=== PATIENT | female | born 1970 | race Caucasian/White ===

== ENCOUNTER → 2022-01-18 | Outpatient (CLI) | payer BC ==
--- NOTE | 2022-01-18 17:37 | CONS ---
CONSULTATION DATE OF SERVICE: 01/18/2022 This 51-year-old lady has been [facility] for obstructive sleep apnea- hypopnea syndrome. HISTORY OF PRESENT ILLNESS/SLEEP-WAKE EVALUATION: The patient has had a history of obstructive sleep apnea for more than 4 years. All of these years she has been on CPAP. Last titration was done about two years ago in another institution and the patient continues to use her CPAP equipment every night for the whole night. Her sleep schedule is from 8 p.m. to 4 a.m. on weekdays and from 8 or 9 p.m. to 5 or 6 a.m. on weekends. No problems with falling asleep. No TV in bedroom. She usually sleeps on the side position. She wakes up from sleep up to 3 times with maybe one episode of nocturia. No history of hypnagogic hallucinations, sleep paralysis or cataplexy. The patient usually does not take any naps. [place] Sleepiness Scale is in very high range at 18. I checked her CPAP unit. Pressure is 11 cm of water. Usage is 30/30 nights for more than 4 hours and average 6.36 hours per night. Her machine does not have information about apnea-hypopnea index. The patient is using an Eson medium-sized nasal pillow mask. Her machine is more than 7 years old. PAST MEDICAL HISTORY: Positive for hypertension. No diabetes. Positive for migraines, asthma, basal cell carcinoma removed from the chest, liver cirrhosis, nonalcoholic. MEDICATIONS: 1. Lisinopril 10 mg once a day. 2. Albuterol as needed. 3. 100 mg as needed. SOCIAL HISTORY: Positive for smoking about pack a day for 30 years. Alcohol consumption: None at the present time. FAMILY HISTORY: Hypertension, heart problems, asthma, arthritis, cancer, diabetes, restless legs. REVIEW OF SYSTEMS: Some awakenings from sleep. No fevers. No double vision. No recent chest pain. No shortness of breath. No abdominal pain. No bleeding episodes. No blood in the urine. No seizure episodes. PHYSICAL EXAMINATION: GENERAL: Pleasant lady in no distress. VITAL SIGNS: BP 161/93, HR 73, RR 18, height 5 feet 5-3/4 inches, weight 229.6 pounds, body mass index 37.2, temperature 97.4, oxygen saturation at room air 97%. HEENT: ANGELA HANEY, evaluation of oropharynx showed tongue protrudes midline. Low position of soft palate. NECK: Supple, no JVD. Thyroid is not palpable. Neck measures 16 inches in circumference. LUNGS: Clear to percussion and to auscultation. Good air exchange. No wheezing or rhonchi. HEART: S1, S2 regular. No murmurs, gallops, or rubs. ABDOMEN: Soft and nontender. Bowel sounds are present. No organomegaly appreciated. EXTREMITIES: No clubbing or cyanosis. ODD JOB WORKER: Awake, alert, and oriented X3. Cranial nerves 2 to 7 intact. There is no fasciculation or atrophy. noted. No focal deficits observed. IMPRESSION: 1. Obstructive sleep apnea-hypopnea syndrome for about 8 years. Patient continues to use her CPAP equipment every night. Good compliance with treatment. She still has some awakenings from sleep while using her CPAP unit. CPAP unit is old. She has a wide neck, low position of soft palate; obstructive sleep apnea-hypopnea syndrome. 2. Hypertension. 3. Asthma. 4. History of migraines. 5. History of skin carcinoma of the chest, status post surgical treatment. 6. Liver cirrhosis. 7. History of smoking for 30 pack/years. PLAN: 1. I wrote a prescription to replace CPAP unit with a new one with automatic regimen of the pressure up to 13 cm of water and minimal 7 cm of water. 2. Prescription for all necessary CPAP supplies. 3. We will get results of previous sleep studies. 4. I will see patient in 30 to 90 days after the patient receives her new CPAP unit to evaluate clinical response on treatment and to make any necessary adjustments and to check compliance with treatment and check apnea-hypopnea index reading from the new machine. Her present machine does not have information about apnea-hypopnea index. 5. Watching and losing weight. 6. Precautions related to driving. No driving if feeling sleepiness. 7. Smoking cessation program. Thank you very much for referring this patient for consultation. Sincerely, Armand Contreras MD, PhD, FAASM Diplomat of [place] Sleep Medicine Board of [place] Security Operations Manager of [facility] [place] MMODL / IJN: [id number] /
== END ==
LOC: SLEEP 14:49
PROVIDERS: ATTEND Internal Medicine
DX: G47.33 Obstructive sleep apnea (adult) (pediatric) (principal); I10 Essential (primary) hypertension; J45.909 Unspecified asthma, uncomplicated; G43.909 Migraine, unspecified, not intractable, without status migrainosus; Z99.89 Dependence on other enabling machines and devices; Z98.890 Other specified postprocedural states; K74.60 Unspecified cirrhosis of liver; Z87.891 Personal history of nicotine dependence; Z85.828 Personal history of other malignant neoplasm of skin
CPT/HCPCS: 99202

== ENCOUNTER → 2022-10-18 | Outpatient (CLI) | payer BC ==
--- NOTE | 2022-10-18 16:23 | P.PN ---
Subjective DATE: 10/18/2022 FOLLOW UP VISIT. Patient with obstructive sleep apnea hypopnea syndrome return to sleep center for follow-up visit. Information from previous visit have been reviewed. During previous visit patient was recommended to get new CPAP unit, but she was not able to get new CPAP unit. Patient is using PAP equipment every night for the whole night, getting PAP supplies in time. [place] sleepiness scale is slightly increased to 11. I checked information from PAP unit. Pap unit is very old. One knob is absent. PAP unit pressure 11 cm H2O. Usage is 100 % for more then 4 hours, average 8.5 hours per night. CPAP unit doesn't have information about apnea-hypopnea index MEDICATIONS:1. Lisinopril 2. Albuterol inhaler as needed During physical exam: GENERAL: A pleasant patient without any distress. VITAL SIGNS: BP 157/97, HR 76, RR 16 , weight 229.4, temperature 97.3, oxygen saturation at room air 97 % . HEENT: PERRLA, EOMI.low position of soft palate, Mallapati 3 . NECK: Supple. No JVD. LUNGS: Clear to percussion and to auscultation. Good air exchange. No wheezing or rhonchi. HEART: S1, S2 regular. ABDOMEN: Soft and nontender. Obese EXTREMITIES: No clubbing or cyanosis. RESIDENTIAL ADVISOR: Awake, alert, and oriented x3. No focal deficit. Impressions: 1. Obstructive sleep apnea-hypopnea syndrome. Patient demonstrated great compliance with treatment, benefiting from treatment. CPAP unit needs to be replaced. 2. Hypertension. 3. Asthma. 4. History of liver cirrhosis. 5. History of migraines. 6. Status post surgical treatment for skin cancer in the chest area. 7. Smoking for 30 pack years. Plan: 1. Continue using PAP equipment every night for the whole night. Prescription for new CPAP unit was written again. 2. To change air filter at least 1-2 times per month. 3. PAP unit should stay lower then position of the head. 4. Advised patient to remove all remaining water from humidifier canister daily and make it dry after each usage. Refill canister with fresh distilled water before each usage. 5. Sleep hygiene with regular time in bed for at least 8 hours. 6. Precautions related to driving. No driving if feel any sleepiness. 7. I will maintain prescription for PAP supplies including mask, tube, filters. 8. Follow up visit after patient will get new CPAP unit. 9. Watching and losing weight. Thank you very much for allowing me to participate in the management of your patient. Armand Contreras MD, PhD, FAASM. Diplomat of [place] [employer], Sleep Medicine Board by [employer] Import And Export Clerk of [facility] [place]
== END ==
LOC: SLEEP 15:26
PROVIDERS: ATTEND Internal Medicine
DX: G47.33 Obstructive sleep apnea (adult) (pediatric) (principal); I10 Essential (primary) hypertension; J45.909 Unspecified asthma, uncomplicated; Z87.891 Personal history of nicotine dependence; Z99.89 Dependence on other enabling machines and devices; Z79.899 Other long term (current) drug therapy; Z87.738 Personal history of other specified (corrected) congenital malformations of digestive system; Z86.69 Personal history of other diseases of the nervous system and sense organs; Z85.828 Personal history of other malignant neoplasm of skin
CPT/HCPCS: 99212

== ENCOUNTER → 2023-01-24 | Outpatient (CLI) | payer BC ==
--- NOTE | 2023-01-24 14:44 | P.PN ---
Subjective DATE: 01/24/2023 FOLLOW UP VISIT. Patient with obstructive sleep apnea hypopnea syndrome return to sleep center for follow-up visit. Information from previous visit have been reviewed. Patient received new CPAP unit. This is first visit after patient started to use new CPAP equipment. Patient is using PAP equipment every night for the whole night, getting PAP supplies in time. The patient does not have significant problems with the mask or PAP unit. Patient has problems with humidification, has water in the mask. Position of th e CPAP unit is not correct. It is on the level of the head. [place] sleepiness scale is 9, which is normal. I checked information from PAP unit. PAP unit pressure 7-13, average 12.2 cm H2O. Usage is 93 % for more then 4 hours, average 7.8 hours per night. Leak is 0.9 l/m, which is in acceptable range. Apnea Hypopnea Index is 0.3, which is normal. MEDICATIONS:1. Lisinopril 2. Albuterol During physical exam: GENERAL: A pleasant patient without any distress. VITAL SIGNS: BP 159/87, HR 85, RR 12 , weight 237.4, temperature 97.8, oxygen saturation at room air 97 % . HEENT: PERRLA, EOMI.low position of soft palate, Mallapati 3 . NECK: Supple. No JVD. LUNGS: Clear to percussion and to auscultation. Good air exchange. No wheezing or rhonchi. HEART: S1, S2 regular. ABDOMEN: Soft and nontender. Obese EXTREMITIES: No clubbing or cyanosis. SUSTAINABILITY PROJECT MANAGER: Awake, alert, and oriented x3. No focal deficit. I teach patient how to adjust temperature in humidifier and in the tube. Temperature in the tube was increased to 80. Temperature and humidifier was adjusted to the level of 3. Impressions: 1. Obstructive sleep apnea-hypopnea syndrome. Patient demonstrated great compliance with treatment, benefiting from treatment. 2. Obesity. 3. Hypertension. 4. Asthma. 5. History of migraines. 6. History of liver cirrhosis. 7. Status post surgical treatment for skin cancer in the chest area.. Plan: 1. Continue using PAP equipment every night for the whole night. 2. To change air filter at least 1-2 times per month. 3. PAP unit should stay lower then position of the head. 4. Advised patient to remove all remaining water from humidifier canister daily and make it dry after each usage. Refill canister with fresh distilled water before each usage. 5. Sleep hygiene with regular time in bed for at least 8 hours. 6. Precautions related to driving. No driving if feel any sleepiness. 7. I will maintain prescription for PAP supplies including mask, tube, filters. 8. Watching and losing weight. 9. Follow up visit in 6 months or earlier if patient has any problems. Thank you very much for allowing me to participate in the management of your patient. Armand Contreras MD, PhD, FAASM. Diplomat of [place] [employer], Sleep Medicine Board by [place] [employer] Medicine Food And Nutrition Services Assistant of [facility] [place]
== END ==
LOC: SLEEP 14:12
PROVIDERS: ATTEND Internal Medicine
DX: G47.33 Obstructive sleep apnea (adult) (pediatric) (principal); E66.9 Obesity, unspecified; I10 Essential (primary) hypertension; J45.909 Unspecified asthma, uncomplicated; K74.60 Unspecified cirrhosis of liver; Z88.8 Allergy status to other drugs, medicaments and biological substances; Z98.890 Other specified postprocedural states; Z99.89 Dependence on other enabling machines and devices
CPT/HCPCS: 99212

== ENCOUNTER → 2024-05-13 | Outpatient (CLI) | payer BC | LOC: 3 N SLEEP 13:50 | PROVIDERS: ATTEND Internal Medicine | CPT/HCPCS: 99212 ==